=== PATIENT | male | born 1995 | race Caucasian/White ===

== ENCOUNTER 2017-02-15 03:31 | Inpatient (IN) | payer BC ==
[2017-02-15] MEDS ORDERED: SODIUM CHLORIDE 0.9% 1,000 ML IV ONE ×3 (03:44→06:19)
[2017-02-15] MEDS ORDERED: ONDANSETRON 4 MG/2 ML VIAL IVP STA ×2 (03:44→06:19)
[2017-02-15] MEDS ORDERED: ONDANSETRON 4 MG/2 ML VIAL ONE ×2 (03:47→06:23)
[2017-02-15] MEDS ORDERED: MORPHINE 2 MG/ML SYRINGE IVP STA (04:15)
[2017-02-15] MEDS ORDERED: MORPHINE 2 MG/ML SYRINGE ONE (04:16)
[2017-02-15] MEDS ORDERED: IOPAMIDOL-300 100 ML VIAL IVP ONE (05:29)
[2017-02-15] MEDS ORDERED: HYDROmorphone 1 MG/ML SYRINGE IVP STA ×2 (06:19→08:47)
[2017-02-15] MEDS ORDERED: KETOROLAC 60 MG/2 ML VIAL IVP STA (06:20)
[2017-02-15] MEDS ORDERED: PIPERACILLIN/TAZOBACTAM 3.375 GM in SODIUM CHLORIDE 0.9% MINIBAG 100 ML IV STA (06:20)
[2017-02-15] MEDS ORDERED: KETOROLAC 30 MG/ML VIAL ONE (06:23)
[2017-02-15] MEDS ORDERED: HYDROmorphone 1 MG/ML SYRINGE ONE ×2 (06:23→09:00)
[2017-02-15] MEDS ORDERED: PROCHLORPERAZINE 10 MG/2 ML VIAL IVP PRN (09:04)
[2017-02-15] MEDS: SODIUM CHLORIDE 0.9% 1,000 ML IV SCH ×2 (10:36→20:21)
[2017-02-15] MEDS: SODIUM CHLORIDE FLUSH 0.9% 10 ML SYRINGE IVP PRN (10:36)
[2017-02-15] MEDS: HYDROmorphone 1 MG/ML SYRINGE IVP PRN ×5 (10:50→22:09)
[2017-02-15] MEDS: ENOXAPARIN 40 MG/0.4 ML SYRINGE SUBQ SCH (12:27)
[2017-02-15] MEDS: SODIUM CHLORIDE FLUSH 0.9% 10 ML SYRINGE IVP SCH ×2 (15:15→22:23)
[2017-02-15] MEDS: ONDANSETRON 4 MG/2 ML VIAL IVP PRN (22:18)
[2017-02-16] MEDS: HYDROmorphone 1 MG/ML SYRINGE IVP PRN ×8 (01:08→21:39)
[2017-02-16] MEDS ORDERED: LORazepam 2 MG/ML SYRINGE IVP STA (02:51)
[2017-02-16] MEDS: SODIUM CHLORIDE 0.9% 1,000 ML IV SCH ×3 (06:11→22:26)
[2017-02-16] MEDS: SODIUM CHLORIDE FLUSH 0.9% 10 ML SYRINGE IVP SCH ×3 (06:12→22:26)
[2017-02-16] MEDS: ENOXAPARIN 40 MG/0.4 ML SYRINGE SUBQ SCH (08:51)
[2017-02-16] MEDS ORDERED: POLYETHYLENE GLYCOL 3350 17 GM PACKET PO SCH (09:00)
[2017-02-16] MEDS ORDERED: SODIUM CHLORIDE 0.9% 1,000 ML IV ONE ×2 (09:04→15:26)
[2017-02-16] MEDS: ONDANSETRON 4 MG/2 ML VIAL IVP PRN (12:39)
[2017-02-16] MEDS ORDERED: SODIUM CHLORIDE 0.9% 1,000 ML IV SCH (15:28)
[2017-02-16] MEDS: SODIUM CHLORIDE FLUSH 0.9% 10 ML SYRINGE IVP PRN (18:53)
[2017-02-16] MEDS ORDERED: URSODIOL 250 MG TABLET PO SCH (21:00)
[2017-02-16] MEDS ORDERED: PIPERACILLIN/TAZOBACTAM 3.375 GM in SODIUM CHLORIDE 0.9% MINIBAG 100 ML IV SCH ×4 (22:00)
[2017-02-16] MEDS: ACETAMINOPHEN 325 MG TABLET PO PRN (23:42)
[2017-02-17] MEDS ORDERED: PIPERACILLIN/TAZOBACTAM 3.375 GM in SODIUM CHLORIDE 0.9% MINIBAG 100 ML IV SCH (02:00)
[2017-02-17] MEDS: HYDROmorphone 1 MG/ML SYRINGE IVP PRN ×2 (02:24→05:18)
[2017-02-17] MEDS: SODIUM CHLORIDE 0.9% 1,000 ML IV SCH (02:28)
[2017-02-17] MEDS ORDERED: cefTRIAXone 2 GM in SODIUM CHLORIDE 0.9% MINIBAG 100 ML IV SCH (02:30)
[2017-02-17] MEDS ORDERED: metroNIDAZOLE 500 MG/100 ML 100 ML IV SCH (03:00)
[2017-02-17] MEDS: ACETAMINOPHEN 325 MG TABLET PO PRN (05:06)
== END 2017-02-17 05:53 | disposition short-term general hospital (02) | DRG 438 ==
DX: K85.10 Biliary acute pancreatitis without necrosis or infection (principal); A41.9 Sepsis, unspecified organism; K80.00 Calculus of gallbladder with acute cholecystitis without obstruction; N17.9 Acute kidney failure, unspecified; F32.9 Major depressive disorder, single episode, unspecified; E66.9 Obesity, unspecified; Z68.32 Body mass index [BMI] 32.0-32.9, adult

== ENCOUNTER 2017-02-17 06:00 | Outpatient (CLI) | payer BC | END 2017-02-17 06:01 | disposition short-term general hospital (02) | DX: K85.90 Acute pancreatitis without necrosis or infection, unspecified (principal) | CPT/HCPCS: A0170; A0425; A0426 ==